=== PATIENT | male | born 1990 | race American Indian/Alaskan Native ===

== ENCOUNTER 2017-08-11 13:36 | Inpatient (IN) | payer OTHER ==
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
[2017-08-11] MEDS ORDERED: Vancomycin 1gm in NS 250ml 1 GM/250 ML BAG IVPB STA (14:56)
[2017-08-11] MEDS ORDERED: Piperacillin/Tazobact 3.375 gm 100 ML IVPB STA (14:57)
[2017-08-11 15:03] LABS: BASO # 0.03 K/mm3 (0.0-2.0); BASO % 0.2 % (0.0-3.0); EOS # 0.7 (0.0-0.7); EOS % 4.4 % (1.5-5.0); GRAN # 9.97 (1.4-6.5); GRAN % 67.5 % (50.0-68.0); LYMPH # 3.1 (1.2-3.4); LYMPH % 20.9 % (22.0-35.0); MEAN CORPUSCULAR HEMOGLOBIN 30.3 pg (25.0-35.0); MEAN CORPUSCULAR HGB CONC 33.6 g/dl (31.0-37.0); MEAN PLATELET VOLUME 10.1 fl (7.0-11.0); RED CELL DISTRIBUTION WIDTH 13.6 % (11.5-14.5); WHITE BLOOD COUNT 14.8 10^3/ul (4.5-11.0)
[2017-08-11 15:12] LABS: ALB/GLOB RATIO 1.2 (1.1-1.8); ALKALINE PHOSPHATASE 80 U/L (38-126); ALT/SGPT 53 U/L (7-56); AST/SGOT 43 U/L (17-59); BILIRUBIN,TOTAL 0.8 mg/dL (0.2-1.3); BLOOD UREA NITROGEN 12 mg/dL (7-21); CALCIUM 9.6 mg/dL (8.4-10.5); CARBON DIOXIDE 26 mmol/L (21-33); CHLORIDE 105 mmol/L (98-107); GFR AFRICAN-AMERICAN > 60; GLUCOSE,RANDOM 99 mg/dL (70-110); POTASSIUM 4.2 mmol/L (3.6-5.0); SODIUM 140 mmol/L (132-148); TOTAL PROTEIN 7.9 g/dL (5.8-8.3)
[2017-08-11] MEDS ORDERED: Sodium Chloride 0.9% 1,000 ML IV STA (15:20)
--- NOTE | 2017-08-11 15:37 | RAD ---
PROCEDURE: Right Foot Radiographs. HISTORY: pain COMPARISON: None. FINDINGS: BONES: Normal. No fracture. JOINTS: Normal. SOFT TISSUES: Normal. OTHER FINDINGS: None. IMPRESSION: Normal right foot radiographs.
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
[2017-08-11] MEDS ORDERED: HYDROmorphone 0.5 mg/0.5 ml ISec IVP PRN (19:09)
[2017-08-11 19:55] LABS: CHOLESTEROL 174 mg/dL (130-200)
[2017-08-11 20:08] VITALS: BMI 46.3
[2017-08-11] MEDS: Vancomycin 1gm in NS 250ml 1 GM/250 ML BAG IVPB SCH (20:46)
[2017-08-11] MEDS: HYDROmorphone 0.5 mg/0.5 ml ISec IVP PRN (22:45)
[2017-08-11] MEDS: Piperacillin/Tazobact 3.375 gm 100 ML IVPB SCH (23:04)
[2017-08-12] MEDS ORDERED: Piperacillin/Tazobact 2.25gm 2.25 GM/100 ML BAG IVPB SCH
[2017-08-12] MEDS: HYDROmorphone 0.5 mg/0.5 ml ISec IVP PRN ×4 (03:40→20:33)
[2017-08-12] MEDS: Piperacillin/Tazobact 3.375 gm 100 ML IVPB SCH ×4 (05:28→23:22)
[2017-08-12] MEDS: Vancomycin 1gm in NS 250ml 1 GM/250 ML BAG IVPB SCH ×2 (06:30→20:34)
[2017-08-12 07:26] LABS: HEMATOCRIT 42.1 % (42.0-52.0); MEAN CELL VOLUME 90.5 fl (80.0-105.0); MEAN CORPUSCULAR HEMOGLOBIN 29.7 pg (25.0-35.0); MEAN CORPUSCULAR HGB CONC 32.8 g/dl (31.0-37.0); MEAN PLATELET VOLUME 9.6 fl (7.0-11.0); RED CELL DISTRIBUTION WIDTH 13.6 % (11.5-14.5); WHITE BLOOD COUNT 12.6 10^3/ul (4.5-11.0)
[2017-08-12 08:06] LABS: BLOOD UREA NITROGEN 8 mg/dL (7-21); CALCIUM 9.1 mg/dL (8.4-10.5); CARBON DIOXIDE 30 mmol/L (21-33); CHLORIDE 102 mmol/L (98-107); GFR AFRICAN-AMERICAN > 60; GLUCOSE,RANDOM 106 mg/dL (70-110); POTASSIUM 4.4 mmol/L (3.6-5.0); SODIUM 139 mmol/L (132-148)
[2017-08-12] MEDS ORDERED: Vancomycin 1gm in NS 250ml 1 GM/250 ML BAG IVPB SCH (10:00)
[2017-08-12] MEDS: Clotrimazole 1% Cream(30 gm) TOP SCH ×2 (10:00→18:09)
[2017-08-12] MEDS: Silver Sulfadiazine 1% Cream (25 gm) TP SCH (10:00)
[2017-08-12] MEDS: Enoxaparin 30 mg Syringe SC SCH (10:09)
--- NOTE | 2017-08-12 10:13 | CP.PCM.PN ---
<Deborah Renee - Last Filed: 08/12/17 10:07> Subjective - Date & Time of Evaluation Date of Evaluation: 08/12/17 Time of Evaluation: 10:07 - Subjective Subjective: 26 y/o male seen and evaluated at bedside with attending Dr. Pearl for right foot open wound with swelling and redness. Patient appears to be resting comfortably in his bed and denies of any acute overnight events. Patient denies of any pain to his foot unless someone squeezes it. Patient denies of any overnight F/N/V/C/SOB/CP. Denies of any pedal complains at this time. Objective - Vital Signs/Intake and Output Vital Signs (last 24 hours): Temp Pulse Resp BP Pulse Ox 99.3 F 77 20 140/80 96 08/12/17 07:30 08/12/17 07:30 08/12/17 07:30 08/12/17 07:30 08/12/17 07:30 Intake and Output: 08/12/17 08/12/17 06:59 18:59 Intake Total 240 Balance 240 - Medications Medications: Current Medications Clotrimazole (Lotrimin 1%) 0 gm TOP BID JUAN MIGUEL Enoxaparin Sodium (Lovenox) 30 mg SC DAILY JUAN MIGUEL PRN Reason: Protocol Famotidine (Pepcid) 40 mg PO HS JUAN MIGUEL Last Admin: 08/11/17 22:44 Dose: 40 mg Hydromorphone HCl (Dilaudid) 0.5 mg IVP Q4H PRN PRN Reason: Pain, moderate (4-7) Last Admin: 08/12/17 03:40 Dose: 0.5 mg Vancomycin HCl (Vancomycin 1gm) 1 gm in 250 mls @ 167 mls/hr IVPB Q12H JUAN MIGUEL PRN Reason: Protocol Stop: 08/20/17 19:31 Last Admin: 08/12/17 06:30 Dose: 167 mls/hr Piperacillin Sod/Tazobactam Sod (Zosyn 3.375 In Ns 100ml) 100 mls @ 200 mls/hr IVPB Q6 JUAN MIGUEL PRN Reason: Protocol Stop: 08/21/17 00:01 Last Admin: 08/12/17 05:28 Dose: 200 mls/hr Silver Sulfadiazine (Silvadene 1% 25 Gm) 0 gm TP DAILY JUAN MIGUEL - Labs Labs: 08/12/17 07:00 08/12/17 07:00 - Constitutional Appears: Well, Non-toxic, No Acute Distress - Extremities Exam Extremities Exam: absent: Calf Tenderness Additional comments: Right lower extremity focused exam: VASC: DP/PT pulses palpable 2/4. Temperature gradient warm to warm. Nonpitting pedal edema noted to dorsum of foot. Pedal hair growth present DERM: Circular 0.4cm diameter ulceration noted to medial aspect of 2nd digit in 1st interspace. purulent drainage noted from the punctured site. Interdigital maceration noted. No malodor present, negative probe to bone. Dorsum of foot exhibits mild to moderate erythema extending to the midfoot with mild fluctuance , indicating possible fluid collection or abscess present. No malodor present NEURO: Protective sensation grossly intact ORTHO: No tenderness elicited upon palpation of wound. Mild tenderness noted to palpation of dorsal midfoot. Patient able to perform active ROM exercises at ankle, midfoot, and forefoot joints, all WNL. - Neurological Exam Neurological Exam: Alert, Awake - Psychiatric Exam Psychiatric exam: Normal Affect, Normal Mood Assessment and Plan - Assessment and Plan (Free Text) Assessment: 26 y/o male evaluated for right foot abscess with swelling and erythema Plan: Patient seen and evaluated at bedside with attending Dr. Pearl Chart, labs and vitals reviewed- afebrile, WBC 12.6 Right foot x-ray: - reveals no soft tissue emphysema, no acute fractures or dislocations present, no Charcot foot changes noted MRI of the right foot ordered Right foot 1st interspace wound cleaned with saline and dressing applied using hydrogel and colloid pad Silvadine ordered Surgical shoes ordered and patient educated to walk with the shoe on IV abx as per ID: Shiv/Lindsey Podiatry will continue to follow while in house <Jackie Pearl - Last Filed: 08/12/17 14:52> Objective - Vital Signs/Intake and Output Vital Signs (last 24 hours): Temp Pulse Resp BP Pulse Ox 99.3 F 77 20 140/80 96 08/12/17 07:30 08/12/17 07:30 08/12/17 07:30 08/12/17 07:30 08/12/17 07:30 Intake and Output: 08/12/17 08/12/17 06:59 18:59 Intake Total 240 Balance 240 - Medications Medications: Current Medications Clotrimazole (Lotrimin 1%) 0 gm TOP BID JUAN MIGUEL Enoxaparin Sodium (Lovenox) 30 mg SC DAILY JUAN MIGUEL PRN Reason: Protocol Last Admin: 08/12/17 10:09 Dose: 30 mg Famotidine (Pepcid) 40 mg PO HS JUAN MIGUEL Last Admin: 08/11/17 22:44 Dose: 40 mg Hydromorphone HCl (Dilaudid) 0.5 mg IVP Q4H PRN PRN Reason: Pain, moderate (4-7) Last Admin: 08/12/17 10:15 Dose: 0.5 mg Vancomycin HCl (Vancomycin 1gm) 1 gm in 250 mls @ 167 mls/hr IVPB Q12H JUAN MIGUEL PRN Reason: Protocol Stop: 08/20/17 19:31 Last Admin: 08/12/17 06:30 Dose: 167 mls/hr Piperacillin Sod/Tazobactam Sod (Zosyn 3.375 In Ns 100ml) 100 mls @ 200 mls/hr IVPB Q6 JUAN MIGUEL PRN Reason: Protocol Stop: 08/21/17 00:01 Last Admin: 08/12/17 12:03 Dose: 200 mls/hr Silver Sulfadiazine (Silvadene 1% 25 Gm) 0 gm TP DAILY JUAN MIGUEL - Labs Labs: 08/12/17 07:00 08/12/17 07:00 Attending/Attestation - Attestation I have personally seen and examined this patient.: Yes I have fully participated in the care of the patient.: Yes I have reviewed all pertinent clinical information, including history, physical exam and plan: Yes
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
[2017-08-13] MEDS: HYDROmorphone 0.5 mg/0.5 ml ISec IVP PRN ×5 (00:55→22:44)
[2017-08-13] MEDS: Piperacillin/Tazobact 3.375 gm 100 ML IVPB SCH (06:20)
[2017-08-13] MEDS: Vancomycin 1gm in NS 250ml 1 GM/250 ML BAG IVPB SCH (07:25)
[2017-08-13 07:47] LABS: HEMATOCRIT 41.5 % (42.0-52.0); MEAN CELL VOLUME 90.6 fl (80.0-105.0); MEAN CORPUSCULAR HEMOGLOBIN 29.7 pg (25.0-35.0); MEAN CORPUSCULAR HGB CONC 32.8 g/dl (31.0-37.0); MEAN PLATELET VOLUME 9.7 fl (7.0-11.0); RED CELL DISTRIBUTION WIDTH 13.4 % (11.5-14.5); WHITE BLOOD COUNT 11.5 10^3/ul (4.5-11.0)
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
[2017-08-13 09:13] LABS: BLOOD UREA NITROGEN 10 mg/dL (7-21); CARBON DIOXIDE 28 mmol/L (21-33); CHLORIDE 104 mmol/L (98-107); GFR AFRICAN-AMERICAN > 60; GLUCOSE,RANDOM 109 mg/dL (70-110); POTASSIUM 4.2 mmol/L (3.6-5.0); SODIUM 139 mmol/L (132-148)
--- NOTE | 2017-08-13 09:46 | MRI ---
PROCEDURE: MRI of the right foot without contrast HISTORY: right foot abscess COMPARISON: TECHNIQUE: MRI of the right foot was performed in multiple planes using multiple pulse sequences. FINDINGS: There is a large amount of subcutaneous edema over the dorsum of the foot. This could be due to cellulitis or passive edema. There is no evidence of a discrete abscess There is no marrow edema to suggest osteomyelitis. IMPRESSION: No evidence of osteomyelitis.
[2017-08-13] MEDS: ceFAZolin 2 GM in Sodium Chloride 0.9% 100 ML IVPB SCH ×3 (10:45→21:44)
[2017-08-13] MEDS: Enoxaparin 30 mg Syringe SC SCH (10:45)
[2017-08-13] MEDS: Clotrimazole 1% Cream(30 gm) TOP SCH ×2 (11:00→18:14)
[2017-08-13] MEDS: Silver Sulfadiazine 1% Cream (25 gm) TP SCH (11:00)
--- NOTE | 2017-08-13 12:59 | CP.PCM.PN ---
Subjective - Date & Time of Evaluation Date of Evaluation: 08/13/17 Time of Evaluation: 11:45 - Subjective Subjective: Patient is feeling better, no fevers overnight, less pain in the right foot, no nausea, no vomiting or diarrhea, no headache. Objective - Vital Signs/Intake and Output Vital Signs (last 24 hours): Temp Pulse Resp BP Pulse Ox 98.5 F 67 20 149/99 H 96 08/13/17 07:30 08/13/17 07:30 08/13/17 07:30 08/13/17 07:30 08/13/17 07:30 Intake and Output: 08/13/17 08/13/17 06:59 18:59 Intake Total 1140 Balance 1140 - Medications Medications: Current Medications Clotrimazole (Lotrimin 1%) 0 gm TOP BID [facility] Last Admin: 08/12/17 18:09 Dose: Not Given Enoxaparin Sodium (Lovenox) 30 mg SC DAILY [facility] PRN Reason: Protocol Last Admin: 08/12/17 10:09 Dose: 30 mg Famotidine (Pepcid) 40 mg PO HS [facility] Last Admin: 08/12/17 23:22 Dose: 40 mg Hydromorphone HCl (Dilaudid) 0.5 mg IVP Q4H PRN PRN Reason: Pain, moderate (4-7) Last Admin: 08/13/17 07:25 Dose: 0.5 mg Cefazolin Sodium 2 gm/ Sodium (Chloride) 100 mls @ 200 mls/hr IVPB Q8 [facility] PRN Reason: Protocol Silver Sulfadiazine (Silvadene 1% 25 Gm) 0 gm TP DAILY [facility] Last Admin: 08/12/17 10:00 Dose: Not Given - Labs Labs: 08/13/17 07:00 08/13/17 07:00 - Constitutional Appears: Non-toxic - Head Exam Head Exam: NORMAL INSPECTION - ENT Exam ENT Exam: Mucous Membranes Moist - Neck Exam Neck Exam: absent: Lymphadenopathy, Meningismus - Respiratory Exam Respiratory Exam: absent: Rales, Rhonchi - Cardiovascular Exam Cardiovascular Exam: +S1, +S2 - GI/Abdominal Exam GI & Abdominal Exam: Soft. absent: Tenderness - Extremities Exam Additional comments: right foot with dressings in place Assessment and Plan - Assessment and Plan (Free Text) Plan: Assessment Sepsis due to right foot skin and skin structure infection, purulent, growing MSSA and P. mirabilis BMI 46 heavy smoking Plan will change Vancomycin and Zosyn to Cefazolin; blood cx are negative; reviewed wound cx results; MRI of the foot does not show abscess or osteomyelitis; follow up further Podiatry plans and recommendations will also get HIV test will monitor clinically
[2017-08-13] MEDS ORDERED: HYDROmorphone 2 mg/ml ISec IVP STA ×2 (16:52→16:53)
[2017-08-13] MEDS ORDERED: Lidocaine 1% Inj (20ml) IJ STA (16:54)
[2017-08-13] MEDS ORDERED: Oxycodone/Acetaminophen 5/325 mg Tab PO PRN (17:43)
--- NOTE | 2017-08-13 17:46 | CP.PCM.PN ---
<Deborah Renee - Last Filed: 08/13/17 17:43> Subjective - Date & Time of Evaluation Date of Evaluation: 08/13/17 Time of Evaluation: 17:45 - Subjective Subjective: 26 y/o male seen and evaluated at bedside with attending Dr. Pearl for right foot open wound with swelling and redness. Patient appears to be resting comfortably in his bed and denies of any acute overnight events. Patient denies of any pain to his foot unless someone squeezes it. Patient states that he is feeling better than he did yesterday. Patient denies of any overnight F/N/V/C/ SOB/CP. Denies of any pedal complains at this time. Objective - Vital Signs/Intake and Output Vital Signs (last 24 hours): Temp Pulse Resp BP Pulse Ox 98.5 F 67 20 149/99 H 96 08/13/17 07:30 08/13/17 07:30 08/13/17 07:30 08/13/17 07:30 08/13/17 07:30 Intake and Output: 08/13/17 08/13/17 06:59 18:59 Intake Total 1140 760 Balance 1140 760 - Medications Medications: Current Medications Clotrimazole (Lotrimin 1%) 0 gm TOP BID [facility] Last Admin: 08/13/17 11:00 Dose: Not Given Enoxaparin Sodium (Lovenox) 30 mg SC DAILY [facility] PRN Reason: Protocol Last Admin: 08/13/17 10:45 Dose: 30 mg Famotidine (Pepcid) 40 mg PO HS [facility] Last Admin: 08/12/17 23:22 Dose: 40 mg Hydromorphone HCl (Dilaudid) 0.5 mg IVP Q4H PRN PRN Reason: Pain, moderate (4-7) Last Admin: 08/13/17 12:57 Dose: 0.5 mg Cefazolin Sodium 2 gm/ Sodium (Chloride) 100 mls @ 200 mls/hr IVPB Q8 [facility] PRN Reason: Protocol Last Admin: 08/13/17 13:25 Dose: 200 mls/hr Silver Sulfadiazine (Silvadene 1% 25 Gm) 0 gm TP DAILY [facility] Last Admin: 08/13/17 11:00 Dose: Not Given - Labs Labs: 08/13/17 07:00 08/13/17 07:00 - Constitutional Appears: Well, Non-toxic, No Acute Distress - Extremities Exam Extremities Exam: absent: Calf Tenderness Additional comments: Right lower extremity focused exam: VASC: DP/PT pulses palpable 2/4. Temperature gradient warm to warm. Nonpitting pedal edema noted to dorsum of foot. Pedal hair growth present DERM: Circular 0.4cm diameter ulceration noted to medial aspect of 2nd digit in 1st interspace. purulent drainage noted from the punctured site. Interdigital maceration that extends to the dorso-medial aspect of the 2nd digit. No malodor present, negative probe to bone. Dorsum of foot exhibits mild to moderate erythema extending to the midfoot with mild fluctuance, indicating possible fluid collection or abscess present, non-pitting edema noted extending to the midfoot all consistent with active infection NEURO: Protective sensation grossly intact ORTHO: No tenderness elicited upon palpation of wound. Mild tenderness noted to palpation of dorsal midfoot. Patient able to perform active ROM exercises at ankle, midfoot, and forefoot joints, all WNL. - Neurological Exam Neurological Exam: Alert, Awake, Oriented x3 - Psychiatric Exam Psychiatric exam: Normal Affect, Normal Mood Assessment and Plan - Assessment and Plan (Free Text) Assessment: 26 y/o male evaluated for right foot abscess with swelling and erythema Plan: Patient seen and evaluated at bedside with attending Dr. Pearl Chart, labs and vitals reviewed- afebrile, WBC 11.5 today (trending down) Right foot x-ray: - reveals no soft tissue emphysema, no acute fractures or dislocations present, no Charcot foot changes noted MRI of the right foot `- large amount of subcutaneous edema over the dorsum of the foot consistent with cellulitis. No evidence of OM Patient educated the reason why the swelling, redness is not resolving and will require excavation of purulent drainage - patient demonstrated verbal understanding and agreed with performing bedside I&D procedure Patient given 2mg of IV hydromorphone and a V block performed to the right foot using 10 cc of 1% Lidocaine plain Bedside I&D performed - approximately 9-10 cc of purulent drainage removed from the right foot 1st interspace wound Right foot 1st interspace wound cleaned with saline and dressing applied using betadine, DSD Silvadine ordered Patient educated to walk with the surgical shoe IV abx as per ID: Cefazolin Pain management as per primary Podiatry will continue to follow while in house <Jackie Pearl - Last Filed: 08/21/17 17:12> Objective - Vital Signs/Intake and Output Vital Signs (last 24 hours): Temp Pulse Resp BP Pulse Ox 98 F 56 L 18 123/74 98 08/16/17 08:23 08/16/17 08:23 08/16/17 08:23 08/16/17 08:23 08/16/17 08:23 - Labs Labs: 08/15/17 06:30 08/15/17 06:30 Attending/Attestation - Attestation I have personally seen and examined this patient.: Yes I have fully participated in the care of the patient.: Yes I have reviewed all pertinent clinical information, including history, physical exam and plan: Yes
--- NOTE | 2017-08-13 23:19 | PN ---
DATE: SUBJECTIVE: The patient is a 26-year-old male. The patient is seen and examined on the bedside. Looking comfortable. Still having pain in the right foot, but a little bit better. No fever. No chills. No change in the status. No nausea, vomiting or diarrhea. No hematuria. No hematochezia. Has good sleep. Appetite is good. PHYSICAL EXAMINATION VITAL SIGNS: Temperature 98.5, pulse 67, respiratory rate 20, blood pressure 149/99, pulse oximetry of 96%. HEENT: Head is normocephalic and atraumatic. Eyes, PERRLA. Extraocular muscles intact. Conjunctivae are clear. Nose is patent. Mucous membranes are moist. NECK: Supple. No carotid bruits. No JVD or thyromegaly. CHEST: Bilaterally symmetrical. HEART: S1 and S2 positive. LUNGS: Clear to auscultation. ABDOMEN: Soft. Bowel sounds present. No organomegaly. EXTREMITIES: No cyanosis. No edema. No clubbing. On right foot has a dressing. NEUROLOGICAL: The patient is awake and alert. Moving all 4 extremities. No focal deficit. MEDICATIONS: Lotrimin, Lovenox, Pepcid, Dilaudid, *------*, Silvadene. LABORATORY DATA: White blood cells 11.5, hemoglobin 13.6, hematocrit 41.5, platelets 252. Sodium 139, potassium 4.2, BUN 10, creatinine 1.0, glucose 109. ASSESSMENT AND PLAN: Mr. Iain Donnelly is a 26-year-old male with leukocytosis, anemia, has sepsis with right foreskin and skin structure infection, purulent, growing methicillin-sensitive Staphylococcus aureus and Proteus mirabilis, BMI 46, history of heavy smoking. Infectious Disease changes vancomycin to Zosyn and to cefazolin. Blood cultures are negative. Reviewed wound cultures. MRI of the foot does not shows abscess or osteomyelitis. Automatic Pattern Edger on the case. We will do human immunodeficiency virus test also. Urge to lose weight. Length of time discussion done with the patient. Candidiasis of the toes. Getting Lotrisone cream. Seen by the Podiatry also. Leukocytosis. Bedside incision and drainage procedure was done after explaining to the patient. As per Podiatry, the patient agreed. The patient was given 2 g of IV hydromorphone and *------* block. Wound cleaned. Silvadene ordered. We will give nicotine patch for smoking. Repeat labs. We will follow. Radha Vann MD
[2017-08-14] MEDS: HYDROmorphone 0.5 mg/0.5 ml ISec IVP PRN ×4 (05:25→22:26)
[2017-08-14] MEDS: ceFAZolin 2 GM in Sodium Chloride 0.9% 100 ML IVPB SCH ×3 (05:26→22:28)
[2017-08-14 07:25] LABS: HEMATOCRIT 41.7 % (42.0-52.0); MEAN CELL VOLUME 90.1 fl (80.0-105.0); MEAN CORPUSCULAR HEMOGLOBIN 29.8 pg (25.0-35.0); MEAN CORPUSCULAR HGB CONC 33.1 g/dl (31.0-37.0); MEAN PLATELET VOLUME 9.6 fl (7.0-11.0); RED CELL DISTRIBUTION WIDTH 13.2 % (11.5-14.5); WHITE BLOOD COUNT 10.7 10^3/ul (4.5-11.0)
[2017-08-14 08:08] LABS: BLOOD UREA NITROGEN 9 mg/dL (7-21); CALCIUM 9.2 mg/dL (8.4-10.5); CARBON DIOXIDE 28 mmol/L (21-33); CHLORIDE 102 mmol/L (98-107); GFR AFRICAN-AMERICAN > 60; GLUCOSE,RANDOM 113 mg/dL (70-110); POTASSIUM 4.3 mmol/L (3.6-5.0); SODIUM 139 mmol/L (132-148)
--- NOTE | 2017-08-14 09:40 | CP.PCM.PN ---
<Deborah Renee - Last Filed: 08/14/17 09:37> Subjective - Date & Time of Evaluation Date of Evaluation: 08/14/17 Time of Evaluation: 09:37 - Subjective Subjective: 26 y/o male seen and evaluated at bedside with attending Dr. Pearl 1 day s/p bedside I&D of right foot abscess. Patient appears to be resting comfortably in his bed and denies of any acute overnight events. Patient denies of any pain to his foot unless someone squeezes it. Patient states that he is feeling better than he did yesterday. Patient denies of any overnight F/N/V/C/SOB/CP. Denies of any pedal complains at this time. Objective - Vital Signs/Intake and Output Vital Signs (last 24 hours): Temp Pulse Resp BP Pulse Ox 98 F 84 18 131/90 94 L 08/14/17 00:00 08/14/17 01:08 08/14/17 00:00 08/14/17 01:08 08/14/17 00:00 Intake and Output: 08/14/17 08/14/17 06:59 18:59 Intake Total 660 Balance 660 - Medications Medications: Current Medications Acetaminophen (Tylenol 325mg Tab) 650 mg PO Q4H PRN PRN Reason: Pain, Mild (1-3) Clotrimazole (Lotrimin 1%) 0 gm TOP BID [facility] Last Admin: 08/13/17 18:14 Dose: Not Given Enoxaparin Sodium (Lovenox) 30 mg SC DAILY [facility] PRN Reason: Protocol Last Admin: 08/13/17 10:45 Dose: 30 mg Famotidine (Pepcid) 40 mg PO HS [facility] Last Admin: 08/13/17 21:44 Dose: 40 mg Hydromorphone HCl (Dilaudid) 0.5 mg IVP Q4H PRN PRN Reason: Pain, moderate (4-7) Last Admin: 08/14/17 05:25 Dose: 0.5 mg Cefazolin Sodium 2 gm/ Sodium (Chloride) 100 mls @ 200 mls/hr IVPB Q8 [facility] PRN Reason: Protocol Last Admin: 08/14/17 05:26 Dose: 200 mls/hr Nicotine (Nicoderm Cq) 1 patch TD DAILY [facility] Oxychlorosene Sodium (Clorpactin Wcs-90) 2 gm TOP DAILY [facility] Silver Sulfadiazine (Silvadene 1% 25 Gm) 0 gm TP DAILY [facility] Last Admin: 08/13/17 11:00 Dose: Not Given - Labs Labs: 08/14/17 06:50 08/14/17 06:50 - Constitutional Appears: Well, Non-toxic, No Acute Distress - Extremities Exam Extremities Exam: absent: Calf Tenderness Additional comments: Right lower extremity focused exam: VASC: DP/PT pulses palpable 2/4. Temperature gradient warm to warm. Nonpitting pedal edema noted to dorsum of foot. Pedal hair growth present DERM: Circular 0.4cm diameter ulceration noted to medial aspect of 2nd digit in 1st interspace. purulent drainage noted from the punctured site. Interdigital maceration that extends to the dorso-medial aspect of the 2nd digit. No malodor present, negative probe to bone. Dorsum of foot exhibits mild to moderate erythema extending to the midfoot with mild fluctuance, indicating possible fluid collection or abscess present, non-pitting edema noted extending to the midfoot all consistent with active infection NEURO: Protective sensation grossly intact ORTHO: No tenderness elicited upon palpation of wound. Mild tenderness noted to palpation of dorsal midfoot. Patient able to perform active ROM exercises at ankle, midfoot, and forefoot joints, all WNL. - Neurological Exam Neurological Exam: Alert, Awake, Oriented x3 - Psychiatric Exam Psychiatric exam: Normal Affect, Normal Mood Assessment and Plan - Assessment and Plan (Free Text) Assessment: 26 y/o male evaluated 1 day s/p I&D of right foot abscess with swelling and erythema Plan: Patient seen and evaluated at bedside with attending Dr. Pearl Chart, labs and vitals reviewed- afebrile, WBC 10.7 today (trending down) Right foot x-ray: - reveals no soft tissue emphysema, no acute fractures or dislocations present, no Charcot foot changes noted MRI of the right foot `- large amount of subcutaneous edema over the dorsum of the foot consistent with cellulitis. No evidence of OM Patient educated the reason why the swelling, redness is not resolving and will require excavation of purulent drainage - Educated patient will have to go to OR to perform further drainage Expressed approximately 3-4 cc of purulent drainage during dressing change Right foot 1st interspace wound cleaned with saline and dressing applied using betadine, DSD Patient to go to OR for further I&D of the wound today - Dr. Long consulted NPO order in place Silvadine ordered Patient educated to walk with the surgical shoe IV abx as per ID: Cefazolin Pain management as per primary Podiatry will continue to follow while in house <Jackie Pearl - Last Filed: 08/21/17 17:12> Objective - Vital Signs/Intake and Output Vital Signs (last 24 hours): Temp Pulse Resp BP Pulse Ox 98 F 56 L 18 123/74 98 08/16/17 08:23 08/16/17 08:23 08/16/17 08:23 08/16/17 08:23 08/16/17 08:23 - Labs Labs: 08/15/17 06:30 08/15/17 06:30 Attending/Attestation - Attestation I have personally seen and examined this patient.: Yes I have fully participated in the care of the patient.: Yes I have reviewed all pertinent clinical information, including history, physical exam and plan: Yes
[2017-08-14] MEDS: Oxychlorosene Topical 2 gm Packet TOP SCH (09:50)
[2017-08-14] MEDS: Clotrimazole 1% Cream(30 gm) TOP SCH ×2 (09:51→17:25)
[2017-08-14] MEDS: Silver Sulfadiazine 1% Cream (25 gm) TP SCH (09:51)
[2017-08-14] MEDS: Enoxaparin 30 mg Syringe SC SCH (09:51)
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
--- NOTE | 2017-08-14 13:06 | CP.PCM.PN ---
Subjective - Date & Time of Evaluation Date of Evaluation: 08/14/17 Time of Evaluation: 11:50 - Subjective Subjective: Patient is feeling better, no fevers overnight, less pain in the right foot, no diarrhea, no nausea. For I and D today in the OR. Objective - Vital Signs/Intake and Output Vital Signs (last 24 hours): Temp Pulse Resp BP Pulse Ox 99.2 F 70 20 138/89 98 08/14/17 07:00 08/14/17 07:00 08/14/17 07:00 08/14/17 07:00 08/14/17 07:00 Intake and Output: 08/14/17 08/14/17 06:59 18:59 Intake Total 660 Balance 660 - Medications Medications: Current Medications Acetaminophen (Tylenol 325mg Tab) 650 mg PO Q4H PRN PRN Reason: Pain, Mild (1-3) Clotrimazole (Lotrimin 1%) 0 gm TOP BID [facility] Last Admin: 08/14/17 09:51 Dose: Not Given Enoxaparin Sodium (Lovenox) 30 mg SC DAILY JUAN MIGUEL PRN Reason: Protocol Last Admin: 08/14/17 09:51 Dose: Not Given Famotidine (Pepcid) 40 mg PO HS JUAN MIGUEL Last Admin: 08/13/17 21:44 Dose: 40 mg Hydromorphone HCl (Dilaudid) 0.5 mg IVP Q4H PRN PRN Reason: Pain, moderate (4-7) Last Admin: 08/14/17 09:50 Dose: 0.5 mg Cefazolin Sodium 2 gm/ Sodium (Chloride) 100 mls @ 200 mls/hr IVPB Q8 JUAN MIGUEL PRN Reason: Protocol Last Admin: 08/14/17 05:26 Dose: 200 mls/hr Nicotine (Nicoderm Cq) 1 patch TD DAILY JUAN MIGUEL Last Admin: 08/14/17 09:51 Dose: Not Given Oxychlorosene Sodium (Clorpactin Wcs-90) 2 gm TOP DAILY JUAN MIGUEL Last Admin: 08/14/17 09:50 Dose: Not Given Silver Sulfadiazine (Silvadene 1% 25 Gm) 0 gm TP DAILY JUAN MIGUEL Last Admin: 08/14/17 09:51 Dose: Not Given - Labs Labs: 08/14/17 06:50 08/14/17 06:50 - Constitutional Appears: Non-toxic - Head Exam Head Exam: NORMAL INSPECTION - ENT Exam ENT Exam: Mucous Membranes Moist - Neck Exam Neck Exam: absent: Lymphadenopathy, Meningismus - Respiratory Exam Respiratory Exam: absent: Rales, Rhonchi - Cardiovascular Exam Cardiovascular Exam: +S1, +S2 - GI/Abdominal Exam GI & Abdominal Exam: Soft. absent: Tenderness - Extremities Exam Additional comments: right foot with dressings in place Assessment and Plan - Assessment and Plan (Free Text) Plan: Assessment Sepsis due to right foot skin and skin structure infection, purulent, growing MSSA and P. mirabilis BMI 46 heavy smoking Plan continue Cefazolin; blood cx are negative; reviewed wound cx results; MRI of the foot does not show abscess or osteomyelitis; patient is for I and D today in the OR - follow up results HIV test is negative will continue to monitor clinically
[2017-08-14] MEDS ORDERED: Bupivacaine 0.5% Inj(30mL) ONE (13:28)
[2017-08-14] MEDS ORDERED: Lidocaine 1% Inj (20ml) ONE (13:28)
[2017-08-14] MEDS ORDERED: Propofol 10 mg/ml Inj (20 ML) ONE (13:50)
[2017-08-14] MEDS ORDERED: Midazolam 2 MG/2 ML VIAL ONE (13:50)
[2017-08-14] MEDS ORDERED: HYDROmorphone 0.5 mg/0.5 ml ISec IVP PRN (14:29)
[2017-08-14] MEDS ORDERED: Lactated Ringer's 1,000 ML IV SCH (14:30)
[2017-08-14] MEDS ORDERED: HYDROmorphone 0.5 mg/0.5 ml ISec ONE ×2 (14:37→14:55)
--- NOTE | 2017-08-14 14:38 | PCM.SURG1 ---
Surgeon's Initial Post Op Note - Surgeon's Notes Surgeon: Ethan Garden Labourer: Amira PGY1, Víctor PGY1 Type of Anesthesia: MAC Pre-Operative Diagnosis: R. Lower ext abscess Operative Findings: R. Lower ext abscess Post-Operative Diagnosis: R. Lower ext abscess Operation Performed: I/D of R. Lower ext abscess Specimen/Specimens Removed: Wound culture Estimated Blood Loss: EBL {In ML}: 5 Blood Products Given: N/A Drains Used: [place] (x2) Post-Op Condition: Good Date of Surgery/Procedure: 08/14/17 Time of Surgery/Procedure: 14:37
[2017-08-14] MEDS ORDERED: HYDROmorphone 0.5 mg/0.5 ml ISec IVP ONE (14:54)
[2017-08-15] MEDS: HYDROmorphone 0.5 mg/0.5 ml ISec IVP PRN ×2 (02:31→21:26)
[2017-08-15] MEDS: ceFAZolin 2 GM in Sodium Chloride 0.9% 100 ML IVPB SCH ×3 (05:46→21:25)
[2017-08-15 07:21] LABS: MEAN CELL VOLUME 89.9 fl (80.0-105.0); MEAN CORPUSCULAR HEMOGLOBIN 29.6 pg (25.0-35.0); MEAN CORPUSCULAR HGB CONC 32.9 g/dl (31.0-37.0); MEAN PLATELET VOLUME 9.7 fl (7.0-11.0); RED CELL DISTRIBUTION WIDTH 13.2 % (11.5-14.5); WHITE BLOOD COUNT 8.3 10^3/ul (4.5-11.0)
[2017-08-15 08:32] LABS: BLOOD UREA NITROGEN 11 mg/dL (7-21); CALCIUM 9.4 mg/dL (8.4-10.5); CARBON DIOXIDE 29 mmol/L (21-33); CHLORIDE 103 mmol/L (98-107); GFR AFRICAN-AMERICAN > 60; GLUCOSE,RANDOM 98 mg/dL (70-110); POTASSIUM 4.6 mmol/L (3.6-5.0); SODIUM 139 mmol/L (132-148)
--- NOTE | 2017-08-15 08:40 | PN ---
DATE: 08/14/2017 SUBJECTIVE: The patient is a 26-year-old female. The patient seen and examined on the bedside. No fever and no chills. Pain is bearable. No diarrhea. He went for incision and drainage today in OR. PHYSICAL EXAMINATION: VITAL SIGNS: Temperature of 99.2, pulse of 70, respiratory rate of 20, blood pressure of 138/89 and pulse oximetry of 98%. HEENT: Head is normocephalic and atraumatic. Eyes; PERRLA. Extraocular muscles are intact. Conjunctivae clear. Nose is patent. NECK: Supple. No carotid bruit. No JVD or thyromegaly. CHEST: Bilaterally symmetrical. HEART: S1 and S2 positive. LUNGS: Clear to auscultation. ABDOMEN: Soft. Bowel sounds present. No organomegaly. EXTREMITIES: No edema. No cyanosis. NEUROLOGIC: The patient is awake and alert. Moving all four extremities. No focal deficits. LABORATORY DATA: White blood cell is 10.7, hemoglobin is 13.8, hematocrit is 41.7, and platelets are 256. Sodium is 139, potassium is 4.3, BUN is 9, and creatinine is 0.9. Glucose is 113. MEDICATIONS: Lotrisone, Lovenox, Pepcid, Dilaudid, cefazolin, Nicoderm, and Silvadene. ASSESSMENT AND PLAN: Mr Iain Donnelly is a 26-year-old male with anemia, hyperglycemia, came with sepsis due to right foreskin, skin structure infection, purulent growing methicillin-susceptible Staphylococcus aureus and Proteus mirabilis, obesity, body mass index of 46, and history of heavy smoking. According to Infectious Diseases, continue cefazolin. Blood cultures are negative. Magnetic resonance imaging of the foot does not show osteomyelitis. Incision and drainage today in OR. Human immunodeficiency virus test is negative. Urged to quit smoking. Urged to loose weight. Dr. Long did surgery in OR of right lower extremity wound possibly abscess drainage. We will follow. Radha Vann MD [place]
--- NOTE | 2017-08-15 08:51 | CP.PCM.PN ---
Subjective - Date & Time of Evaluation Date of Evaluation: 08/15/17 Time of Evaluation: 08:47 - Subjective Subjective: PGY1 Note for Dr. Long Patient seen and examined at bedside. Doing well with no complaints at this time. Pain is controlled. No fevers or chills. Able to ambulate without difficulty. Objective - Vital Signs/Intake and Output Vital Signs (last 24 hours): Temp Pulse Resp BP Pulse Ox 98.5 F 61 17 170/94 H 98 08/14/17 15:29 08/14/17 15:29 08/14/17 15:29 08/14/17 15:29 08/14/17 15:29 Intake and Output: 08/15/17 08/15/17 06:59 18:59 Intake Total 780 Balance 780 - Medications Medications: Current Medications Acetaminophen (Tylenol 325mg Tab) 650 mg PO Q4H PRN PRN Reason: Pain, Mild (1-3) Clotrimazole (Lotrimin 1%) 0 gm TOP BID [facility] Last Admin: 08/14/17 17:25 Dose: Not Given Enoxaparin Sodium (Lovenox) 30 mg SC DAILY JUAN MIGUEL PRN Reason: Protocol Last Admin: 08/14/17 09:51 Dose: Not Given Famotidine (Pepcid) 40 mg PO HS [facility] Last Admin: 08/14/17 22:26 Dose: 40 mg Hydromorphone HCl (Dilaudid) 0.5 mg IVP Q4H PRN PRN Reason: Pain, moderate (4-7) Last Admin: 08/15/17 02:31 Dose: 0.5 mg Cefazolin Sodium 2 gm/ Sodium (Chloride) 100 mls @ 200 mls/hr IVPB Q8 JUAN MIGUEL PRN Reason: Protocol Last Admin: 08/15/17 05:46 Dose: 200 mls/hr Nicotine (Nicoderm Cq) 1 patch TD DAILY [facility] Last Admin: 08/14/17 09:51 Dose: Not Given Oxychlorosene Sodium (Clorpactin Wcs-90) 2 gm TOP DAILY [facility] Last Admin: 08/14/17 09:50 Dose: Not Given Silver Sulfadiazine (Silvadene 1% 25 Gm) 0 gm TP DAILY [facility] Last Admin: 08/14/17 09:51 Dose: Not Given - Labs Labs: 08/15/17 06:30 08/15/17 06:30 - Constitutional Appears: Well, Non-toxic, No Acute Distress - Head Exam Head Exam: ATRAUMATIC, NORMAL INSPECTION, NORMOCEPHALIC - Eye Exam Eye Exam: EOMI Pupil Exam: NORMAL ACCOMODATION - ENT Exam ENT Exam: Mucous Membranes Moist - Respiratory Exam Respiratory Exam: Clear to Ausculation Bilateral, NORMAL BREATHING PATTERN - Cardiovascular Exam Cardiovascular Exam: REGULAR RHYTHM - GI/Abdominal Exam GI & Abdominal Exam: Soft, Normal Bowel Sounds. absent: Distended, Tenderness - Extremities Exam Extremities Exam: Tenderness. absent: Joint Swelling Additional comments: minimal tenderness around incision site. Dressing clean dry and intact. - Neurological Exam Neurological Exam: Alert, Awake, Oriented x3 - Psychiatric Exam Psychiatric exam: Normal Affect, Normal Mood - Skin Skin Exam: Dry, Intact, Normal Color, Warm Assessment and Plan - Assessment and Plan (Free Text) Assessment: 26M POD1 I/D R. Leg Abscess Plan: * Dressing changes per podiatry * Continue medical managment * No surgical intervention needed at this time * Ambulate, pain control Dallin Collier PGY1
[2017-08-15] MEDS ORDERED: HYDROmorphone 1 mg/ml ISec IVP STA (09:54)
--- NOTE | 2017-08-15 11:41 | CP.PCM.PN ---
<Samuel Reneericharchay - Last Filed: 08/15/17 11:33> Subjective - Date & Time of Evaluation Date of Evaluation: 08/15/17 Time of Evaluation: 11:33 - Subjective Subjective: 26 y/o male seen and evaluated at bedside with attending Dr. Pearl 1 day s/p bedside I&D of right foot abscess. Patient appears to be resting comfortably in his bed and denies of any acute overnight events. Patient denies of any pain to his foot unless someone squeezes it. Patient states that he is feeling better than he did yesterday. 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 Patient denies of any overnight F/N/V/C/SOB/CP. Denies of any pedal complains at this time. Objective - Vital Signs/Intake and Output Vital Signs (last 24 hours): Temp Pulse Resp BP Pulse Ox 97.9 F 68 18 145/88 99 08/15/17 09:09 08/15/17 09:09 08/15/17 09:09 08/15/17 09:09 08/15/17 09:09 Intake and Output: 08/15/17 08/15/17 06:59 18:59 Intake Total 780 Balance 780 - Medications Medications: Current Medications Acetaminophen (Tylenol 325mg Tab) 650 mg PO Q4H PRN PRN Reason: Pain, Mild (1-3) Clotrimazole (Lotrimin 1%) 0 gm TOP BID [facility] Last Admin: 08/14/17 17:25 Dose: Not Given Enoxaparin Sodium (Lovenox) 30 mg SC DAILY JUAN MIGUEL PRN Reason: Protocol Last Admin: 08/14/17 09:51 Dose: Not Given Famotidine (Pepcid) 40 mg PO HS [facility] Last Admin: 08/14/17 22:26 Dose: 40 mg Hydromorphone HCl (Dilaudid) 0.5 mg IVP Q4H PRN PRN Reason: Pain, moderate (4-7) Last Admin: 08/15/17 02:31 Dose: 0.5 mg Cefazolin Sodium 2 gm/ Sodium (Chloride) 100 mls @ 200 mls/hr IVPB Q8 JUAN MIGUEL PRN Reason: Protocol Last Admin: 08/15/17 05:46 Dose: 200 mls/hr Nicotine (Nicoderm Cq) 1 patch TD DAILY [facility] Last Admin: 08/14/17 09:51 Dose: Not Given Oxychlorosene Sodium (Clorpactin Wcs-90) 2 gm TOP DAILY [facility] Last Admin: 08/14/17 09:50 Dose: Not Given Silver Sulfadiazine (Silvadene 1% 25 Gm) 0 gm TP DAILY [facility] Last Admin: 08/14/17 09:51 Dose: Not Given - Labs Labs: 08/15/17 06:30 08/15/17 06:30 - Constitutional Appears: Well, Non-toxic, No Acute Distress - Extremities Exam Extremities Exam: absent: Calf Tenderness Additional comments: Right lower extremity focused exam: VASC: DP/PT pulses palpable 2/4. Temperature gradient warm to warm. Nonpitting pedal edema noted to dorsum of foot. Pedal hair growth present DERM: Circular 0.4cm diameter ulceration noted to medial aspect of 2nd digit in 1st interspace which connects to the surgical incision superior to shaft of the 3rd metatarsal as well as small surgical incision in the 1st interspace. No drainage noted from the incision site. Interdigital maceration that extends to the dorso-medial aspect of the 2nd digit. No malodor present, negative probe to bone. Dorsum of foot exhibits minimal erythema which appears to be resolving, skin tension lines seen on the dorsum of the foot indicating decrease in edema, no fluctuance, no signs of active infection at this time NEURO: Protective sensation grossly intact ORTHO: No tenderness elicited upon palpation of wound. Mild tenderness noted to palpation of dorsal midfoot. Patient able to perform active ROM exercises at ankle, midfoot, and forefoot joints, all WNL. - Neurological Exam Neurological Exam: Alert, Awake, Oriented x3 - Psychiatric Exam Psychiatric exam: Normal Affect, Normal Mood Assessment and Plan - Assessment and Plan (Free Text) Assessment: 26 y/o male evaluated 1 day s/p I&D of right foot abscess Plan: Patient seen and evaluated at bedside with attending Dr. Pearl Chart, labs and vitals reviewed- afebrile, WBC 8.3 today (trending down) Right foot x-ray: - reveals no soft tissue emphysema, no acute fractures or dislocations present, no Charcot foot changes noted MRI of the right foot `- large amount of subcutaneous edema over the dorsum of the foot consistent with cellulitis. No evidence of OM No purulent drainage during dressing change Surgical site flushed with saline Surgical site packed with iodoform packing, DSD, [place] Patient educated to walk with the surgical shoe IV abx as per ID: Cefazolin Pain management as per primary Podiatry will continue to follow while in house <Jackie Pearl - Last Filed: 08/21/17 17:15> Objective - Vital Signs/Intake and Output Vital Signs (last 24 hours): Temp Pulse Resp BP Pulse Ox 98 F 56 L 18 123/74 98 08/16/17 08:23 08/16/17 08:23 08/16/17 08:23 08/16/17 08:23 08/16/17 08:23 - Labs Labs: 08/15/17 06:30 08/15/17 06:30
[2017-08-15] MEDS: Enoxaparin 30 mg Syringe SC SCH (12:06)
[2017-08-15] MEDS: Clotrimazole 1% Cream(30 gm) TOP SCH (12:07)
[2017-08-15] MEDS: Silver Sulfadiazine 1% Cream (25 gm) TP SCH (12:07)
[2017-08-15] MEDS: Oxychlorosene Topical 2 gm Packet TOP SCH (12:08)
--- NOTE | 2017-08-15 13:43 | CP.PCM.PN ---
Subjective - Date & Time of Evaluation Date of Evaluation: 08/15/17 Time of Evaluation: 12:20 - Subjective Subjective: Comfortable, no fevers, improved pain in the foot. Objective - Vital Signs/Intake and Output Vital Signs (last 24 hours): Temp Pulse Resp BP Pulse Ox 97.9 F 68 18 145/88 99 08/15/17 09:09 08/15/17 09:09 08/15/17 09:09 08/15/17 09:09 08/15/17 09:09 Intake and Output: 08/15/17 08/15/17 06:59 18:59 Intake Total 780 Balance 780 - Medications Medications: Current Medications Acetaminophen (Tylenol 325mg Tab) 650 mg PO Q4H PRN PRN Reason: Pain, Mild (1-3) Clotrimazole (Lotrimin 1%) 0 gm TOP BID [facility] Last Admin: 08/14/17 17:25 Dose: Not Given Enoxaparin Sodium (Lovenox) 30 mg SC DAILY JUAN MIGUEL PRN Reason: Protocol Last Admin: 08/14/17 09:51 Dose: Not Given Famotidine (Pepcid) 40 mg PO HS [facility] Last Admin: 08/14/17 22:26 Dose: 40 mg Hydromorphone HCl (Dilaudid) 0.5 mg IVP Q4H PRN PRN Reason: Pain, moderate (4-7) Last Admin: 08/15/17 02:31 Dose: 0.5 mg Cefazolin Sodium 2 gm/ Sodium (Chloride) 100 mls @ 200 mls/hr IVPB Q8 JUAN MIGUEL PRN Reason: Protocol Last Admin: 08/15/17 05:46 Dose: 200 mls/hr Nicotine (Nicoderm Cq) 1 patch TD DAILY [facility] Last Admin: 08/14/17 09:51 Dose: Not Given Oxychlorosene Sodium (Clorpactin Wcs-90) 2 gm TOP DAILY JUAN MIGUEL Last Admin: 08/14/17 09:50 Dose: Not Given Silver Sulfadiazine (Silvadene 1% 25 Gm) 0 gm TP DAILY [facility] Last Admin: 08/14/17 09:51 Dose: Not Given - Labs Labs: 08/15/17 06:30 08/15/17 06:30 - Constitutional Appears: Non-toxic - Head Exam Head Exam: NORMAL INSPECTION - ENT Exam ENT Exam: Mucous Membranes Moist - Neck Exam Neck Exam: absent: Meningismus - Respiratory Exam Respiratory Exam: Decreased Breath Sounds - Cardiovascular Exam Cardiovascular Exam: +S1, +S2 - GI/Abdominal Exam GI & Abdominal Exam: Soft. absent: Tenderness - Extremities Exam Additional comments: right foot with dressings in place Assessment and Plan - Assessment and Plan (Free Text) Plan: Assessment Sepsis due to right foot skin and skin structure infection, purulent, growing MSSA and P. mirabilis S/P I and D POD #1 BMI 46 heavy smoking Plan continue Cefazolin; blood cx are negative; reviewed wound cx results; MRI of the foot does not show abscess or osteomyelitis - can switch to PO Augmentin when ready for discharge HIV test is negative will continue to monitor clinically
--- NOTE | 2017-08-16 03:04 | PN ---
DATE: SUBJECTIVE: Patient is a 26 years old male. Patient was seen and examined at the bedside, looking as comfortable. No fever, no chills. No hematuria, no hematochezia. No swelling of the legs. Pain in the foot improved. PHYSICAL EXAMINATION: VITAL SIGNS: Temperature 97.9, pulse 68, respiratory rate 18, blood pressure 145/80, pulse oximetry 99. HEENT: Head: Normocephalic and atraumatic. Eyes: PERRLA. Extraocular muscles intact. Conjunctivae clear. Nose: Patent. NECK: Supple. No carotid bruits or thyromegaly. CHEST: Bilaterally symmetrical. HEART: S1, S2 positive. LUNGS: Clear to auscultation. ABDOMEN: Soft, bowel sounds present. No organomegaly. EXTREMITIES: No edema. No cyanosis. NEUROLOGIC: The patient is awake and alert. Moving all four extremities. No focal deficits. MEDICATIONS: Tylenol, Lotrimin, Lovenox, Pepcid, Dilaudid, cefazolin, nicotine, Silvadene. LABORATORY DATA: White blood cell 8.3, hemoglobin 13.5, hematocrit 41.0, platelets 277. Sodium 139, potassium 4.6, BUN 11, creatinine 0.9, glucose 98. ASSESSMENT AND PLAN: Mr. Iain Donnelly is 26 years old male with anemia, sepsis due to right foot skin and skin structure infection, purulent growing methicillin-sensitive Staphylococcus aureus and Proteus mirabilis, status post incision and drainage, postoperative day 1, body mass index 46, obesity, heavy smoking. Continue cefazolin. Blood cultures are negative. Reviewed wound cultures, negative. MRI of the foot does not show any abscess or osteomyelitis. HIV test is negative. We will continue monitoring the patient. Gastroenterology and deep venous thrombosis prophylaxes. We will follow up. Radha Vann MD MTDD
[2017-08-16] MEDS: ceFAZolin 2 GM in Sodium Chloride 0.9% 100 ML IVPB SCH (05:43)
[2017-08-16] MEDS: HYDROmorphone 0.5 mg/0.5 ml ISec IVP PRN (06:01)
[2017-08-16] MEDS: Clotrimazole 1% Cream(30 gm) TOP SCH ×2 (06:44→13:44)
[2017-08-16 08:23] VITALS: BP 123/74; PULSE 56; RESP 18; TEMP 98; O2SAT 98
--- NOTE | 2017-08-16 09:01 | CP.PCM.PN ---
Subjective - Date & Time of Evaluation Date of Evaluation: 08/16/17 Time of Evaluation: 08:58 - Subjective Subjective: PGY1 Note for Dr. Long Patient seen and examined at bedside. Doing well with no complaints at this time. Pain improved. Able to ambulate. Objective - Vital Signs/Intake and Output Vital Signs (last 24 hours): Temp Pulse Resp BP Pulse Ox 98 F 56 L 18 123/74 98 08/16/17 08:23 08/16/17 08:23 08/16/17 08:23 08/16/17 08:23 08/16/17 08:23 Intake and Output: 08/16/17 08/16/17 06:59 18:59 Intake Total 1200 Balance 1200 - Medications Medications: Current Medications Acetaminophen (Tylenol 325mg Tab) 650 mg PO Q4H PRN PRN Reason: Pain, Mild (1-3) Clotrimazole (Lotrimin 1%) 0 gm TOP BID [facility] Last Admin: 08/16/17 06:44 Dose: Not Given Enoxaparin Sodium (Lovenox) 30 mg SC DAILY JUAN MIGUEL PRN Reason: Protocol Last Admin: 08/15/17 12:06 Dose: 30 mg Famotidine (Pepcid) 40 mg PO HS JUAN MIGUEL Last Admin: 08/15/17 21:26 Dose: 40 mg Hydromorphone HCl (Dilaudid) 0.5 mg IVP Q4H PRN PRN Reason: Pain, moderate (4-7) Last Admin: 08/16/17 06:01 Dose: 0.5 mg Cefazolin Sodium 2 gm/ Sodium (Chloride) 100 mls @ 200 mls/hr IVPB Q8 JUAN MIGUEL PRN Reason: Protocol Last Admin: 08/16/17 05:43 Dose: 200 mls/hr Nicotine (Nicoderm Cq) 1 patch TD DAILY JUANM IGUEL Last Admin: 08/15/17 12:05 Dose: 1 patch Oxychlorosene Sodium (Clorpactin Wcs-90) 2 gm TOP DAILY JUAN MIGUEL Last Admin: 08/15/17 12:08 Dose: Not Given Silver Sulfadiazine (Silvadene 1% 25 Gm) 0 gm TP DAILY JUAN MIGUEL Last Admin: 08/15/17 12:07 Dose: Not Given - Labs Labs: 08/15/17 06:30 08/15/17 06:30 - Constitutional Appears: Well, Non-toxic, No Acute Distress - Head Exam Head Exam: ATRAUMATIC, NORMAL INSPECTION, NORMOCEPHALIC - Eye Exam Eye Exam: EOMI Pupil Exam: NORMAL ACCOMODATION - ENT Exam ENT Exam: Mucous Membranes Moist - Respiratory Exam Respiratory Exam: Clear to Ausculation Bilateral, NORMAL BREATHING PATTERN - Cardiovascular Exam Cardiovascular Exam: REGULAR RHYTHM - GI/Abdominal Exam GI & Abdominal Exam: Soft, Normal Bowel Sounds. absent: Distended, Tenderness - Extremities Exam Extremities Exam: Tenderness (mild tenderness around I/D site. dressing intact. Clean and dry). absent: Joint Swelling - Neurological Exam Neurological Exam: Alert, Awake, Oriented x3 - Psychiatric Exam Psychiatric exam: Normal Affect, Normal Mood Assessment and Plan - Assessment and Plan (Free Text) Assessment: 26M S/P ID of R. Foot abscess Plan: * Wound care per podiatry * Continue antibiotics * No further surgical intervention needed at this time * D/W Dr. Long
[2017-08-16] MEDS: Enoxaparin 30 mg Syringe SC SCH (10:00)
[2017-08-16] MEDS ORDERED: HYDROmorphone 1 mg/ml ISec IVP STA (11:25)
[2017-08-16] MEDS: Silver Sulfadiazine 1% Cream (25 gm) TP SCH (13:44)
--- NOTE | 2017-08-16 13:52 | CP.PCM.PN ---
<Erick New - Last Filed: 08/16/17 18:02> Subjective - Date & Time of Evaluation Date of Evaluation: 08/16/17 Time of Evaluation: 13:52 - Subjective Subjective: Podiatry Progress Note 26 year old male patient seen and evaluated at bedside with attending, Dr. Mao 2 days s/p bedside I&D of right foot abscess. Patient hemodyamically stable and NAD. Denies any acute events overnight. Patient denies any pain in right foot currently however anxious for dressing change as there is still pain with palpation. Patient aware he will be discharged today and will follow up with podiatry in wound care center within 1 week of discharge. Denies N/V/F/D/C/ SOB/calf pain. Offers no other pedal complaints at this time. Objective - Vital Signs/Intake and Output Vital Signs (last 24 hours): Temp Pulse Resp BP Pulse Ox 98 F 56 L 18 123/74 98 08/16/17 08:23 08/16/17 08:23 08/16/17 08:23 08/16/17 08:23 08/16/17 08:23 Intake and Output: 08/16/17 08/16/17 06:59 18:59 Intake Total 1200 Balance 1200 - Medications Medications: Current Medications Acetaminophen (Tylenol 325mg Tab) 650 mg PO Q4H PRN PRN Reason: Pain, Mild (1-3) Clotrimazole (Lotrimin 1%) 0 gm TOP BID [facility] Last Admin: 08/16/17 13:44 Dose: Not Given Enoxaparin Sodium (Lovenox) 30 mg SC DAILY [facility] PRN Reason: Protocol Last Admin: 08/16/17 10:00 Dose: Not Given Famotidine (Pepcid) 40 mg PO HS [facility] Last Admin: 08/15/17 21:26 Dose: 40 mg Hydromorphone HCl (Dilaudid) 0.5 mg IVP Q4H PRN PRN Reason: Pain, moderate (4-7) Last Admin: 08/16/17 06:01 Dose: 0.5 mg Cefazolin Sodium 2 gm/ Sodium (Chloride) 100 mls @ 200 mls/hr IVPB Q8 [facility] PRN Reason: Protocol Last Admin: 08/16/17 05:43 Dose: 200 mls/hr Nicotine (Nicoderm Cq) 1 patch TD DAILY [facility] Last Admin: 08/16/17 13:44 Dose: Not Given Oxychlorosene Sodium (Clorpactin Wcs-90) 2 gm TOP DAILY [facility] Last Admin: 08/15/17 12:08 Dose: Not Given Silver Sulfadiazine (Silvadene 1% 25 Gm) 0 gm TP DAILY [facility] Last Admin: 08/16/17 13:44 Dose: Not Given - Labs Labs: 08/15/17 06:30 08/15/17 06:30 - Constitutional Appears: Well, Non-toxic, No Acute Distress - Extremities Exam Additional comments: Right lower extremity focused exam: Dressing to RLE appears clean/dry/intact with no strikethrough noted VASC: DP/PT pulses palpable 2/4. Temperature gradient warm to warm. Nonpitting pedal edema noted to dorsum of foot, resolving. Pedal hair growth present DERM: Circular 0.4cm diameter ulceration noted to medial aspect of 2nd digit in 1st interspace which connects to the surgical incision superior to shaft of the 3rd metatarsal as well as small surgical incision in the 1st interspace. No drainage noted from the incision site. Interdigital maceration that extends to the dorso-medial aspect of the 2nd digit. No malodor present, negative probe to bone. Dorsum of foot exhibits minimal erythema which appears to be resolving, skin tension lines seen on the dorsum of the foot indicating decrease in edema, no fluctuance, no signs of active infection at this time NEURO: Protective sensation grossly intact ORTHO: Mild tenderness noted to palpation of dorsal midfoot. Patient able to perform active ROM exercises at ankle, midfoot, and forefoot joints, all WNL. - Neurological Exam Neurological Exam: Alert, Awake, Oriented x3 - Psychiatric Exam Psychiatric exam: Normal Affect, Normal Mood Assessment and Plan - Assessment and Plan (Free Text) Assessment: 26 y/o male evaluated 2 days s/p I&D of right foot abscess Plan: Patient seen and evaluated at bedside with attending Dr. Mao Chart, labs and vitals reviewed- afebrile, WBC 8.3 yesterday Right foot x-ray: - reveals no soft tissue emphysema, no acute fractures or dislocations present, no Charcot foot changes noted MRI of the right foot - large amount of subcutaneous edema over the dorsum of the foot consistent with cellulitis. No evidence of OM Dilaudid 1.5mg given to patient prior to dressing change Surgical site flushed with saline and packed with iodoform packing, DSD, [place] Continue use of surgical shoe with ambulation Continue abx per ID Pain management as per primary Stable from podiatry standpoint Patient to follow up with podiatry in wound care center within 1 week of discharge Patient to keep dressing clean/dry/intact until first outpatient appointment. Advised patient to come to ER if he notices any S&S of infection. Podiatry will continue to follow while in house <Tonny Mao - Last Filed: 08/17/17 07:43> Objective - Vital Signs/Intake and Output Vital Signs (last 24 hours): Temp Pulse Resp BP Pulse Ox 98 F 56 L 18 123/74 98 08/16/17 08:23 08/16/17 08:23 08/16/17 08:23 08/16/17 08:23 08/16/17 08:23 - Labs Labs: 08/15/17 06:30 08/15/17 06:30 Attending/Attestation - Attestation I have personally seen and examined this patient.: Yes I have fully participated in the care of the patient.: Yes I have reviewed all pertinent clinical information, including history, physical exam and plan: Yes
--- NOTE | 2017-08-16 17:28 | CP.PCM.PN ---
Subjective - Date & Time of Evaluation Date of Evaluation: 08/16/17 Time of Evaluation: 12:15 - Subjective Subjective: Comfortable in bed, much improved pain in the right foot, no fevers, no nausea, no diarrhea. Objective - Vital Signs/Intake and Output Vital Signs (last 24 hours): Temp Pulse Resp BP Pulse Ox 98 F 56 L 18 123/74 98 08/16/17 08:23 08/16/17 08:23 08/16/17 08:23 08/16/17 08:23 08/16/17 08:23 Intake and Output: 08/16/17 08/16/17 06:59 18:59 Intake Total 1200 Balance 1200 - Medications Medications: Current Medications Acetaminophen (Tylenol 325mg Tab) 650 mg PO Q4H PRN PRN Reason: Pain, Mild (1-3) Clotrimazole (Lotrimin 1%) 0 gm TOP BID [facility] Last Admin: 08/16/17 06:44 Dose: Not Given Enoxaparin Sodium (Lovenox) 30 mg SC DAILY [facility] PRN Reason: Protocol Last Admin: 08/15/17 12:06 Dose: 30 mg Famotidine (Pepcid) 40 mg PO HS [facility] Last Admin: 08/15/17 21:26 Dose: 40 mg Hydromorphone HCl (Dilaudid) 0.5 mg IVP Q4H PRN PRN Reason: Pain, moderate (4-7) Last Admin: 08/16/17 06:01 Dose: 0.5 mg Cefazolin Sodium 2 gm/ Sodium (Chloride) 100 mls @ 200 mls/hr IVPB Q8 [facility] PRN Reason: Protocol Last Admin: 08/16/17 05:43 Dose: 200 mls/hr Nicotine (Nicoderm Cq) 1 patch TD DAILY [facility] Last Admin: 08/15/17 12:05 Dose: 1 patch Oxychlorosene Sodium (Clorpactin Wcs-90) 2 gm TOP DAILY [facility] Last Admin: 08/15/17 12:08 Dose: Not Given Silver Sulfadiazine (Silvadene 1% 25 Gm) 0 gm TP DAILY [facility] Last Admin: 08/15/17 12:07 Dose: Not Given - Labs Labs: 08/15/17 06:30 08/15/17 06:30 - Constitutional Appears: Non-toxic - Head Exam Head Exam: NORMAL INSPECTION - Neck Exam Neck Exam: absent: Meningismus - Respiratory Exam Respiratory Exam: Decreased Breath Sounds - Cardiovascular Exam Cardiovascular Exam: +S1, +S2 - GI/Abdominal Exam GI & Abdominal Exam: Soft. absent: Tenderness - Extremities Exam Additional comments: right foot with dressings in place Assessment and Plan - Assessment and Plan (Free Text) Plan: Assessment Sepsis due to right foot skin and skin structure infection, purulent, growing MSSA and P. mirabilis S/P I and D POD #2 BMI 46 heavy smoking Plan on Cefazolin; blood cx are negative; reviewed wound cx results; MRI of the foot does not show abscess or osteomyelitis - can switch to PO Augmentin for another 7 days when ready for discharge HIV test is negative
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
--- NOTE | 2017-08-23 12:26 | OP ---
PROCEDURE DATE: 08/14/2017 PREOPERATIVE DIAGNOSIS: Abscess of the right lower extremity. POSTOPERATIVE DIAGNOSIS: Abscess of the right lower extremity. OPERATION PERFORMED: Debridement of the foot and placement of drains. SURGEON: Kolton Long MD DESCRIPTION OF PROCEDURE: In the operating room, the patient having been identified. The time-out was taken successfully. 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 The malum perforans was cleaned out very nicely with 15 blade and a Sauceda scissor to some viable tissue. The Versajet was used to remove some of the necrotic tissue. Pockets were found in between the fourth and fifth toes and a Chary was placed laterally. There was large abscess that was opened. It tracked k in several directions and Criders were placed in a [id number] manner. There was a little bit of bleeding. The area was copiously irrigated and dried using peroxide and it was lightly packed with Iodoform. Light dressings was applied. The patient was taken to recovery room. Kolton Long MD
== END 2017-08-16 14:36 | disposition home or self-care (01) | DRG 872 ==
LOC: ED 13:36 → ERH 17:27 → 5RSO 18:17
PROVIDERS: ADMIT Internal Medicine; ATTEND Internal Medicine
PROC: 0HBMXZZ Excision of Right Foot Skin, External Approach (ICD-10-PCS; 2017-08-11)
PROC: 0H9MXZZ Drainage of Right Foot Skin, External Approach (ICD-10-PCS; 2017-08-13)
PROC: 0H9MXZZ Drainage of Right Foot Skin, External Approach (ICD-10-PCS; principal; 2017-08-14 13:00)
DX: A41.01 Sepsis due to Methicillin susceptible Staphylococcus aureus (principal); E66.01 Morbid (severe) obesity due to excess calories; S91.301A Unspecified open wound, right foot, initial encounter; L02.415 Cutaneous abscess of right lower limb; B35.3 Tinea pedis; D64.9 Anemia, unspecified; Z68.42 Body mass index [BMI] 45.0-49.9, adult; L02.619 Cutaneous abscess of unspecified foot; L03.115 Cellulitis of right lower limb; B37.9 Candidiasis, unspecified; F17.210 Nicotine dependence, cigarettes, uncomplicated; Z83.3 Family history of diabetes mellitus; R40.2412 Glasgow coma scale score 13-15, at arrival to emergency department; L98.499 Non-pressure chronic ulcer of skin of other sites with unspecified severity; B96.4 Proteus (mirabilis) (morganii) as the cause of diseases classified elsewhere